=== PATIENT | male | born 1975 | race Hispanic/Latino ===

== ENCOUNTER 2024-01-12 17:06 | Emergency (ER) | payer BC ==
[2024-01-12 17:59] LABS: Specific Gravity 1.007 (1.005-1.030); Urine Bilirubin NEGATIVE (Negative); Urine Blood Negative (Negative); Urine Clarity Clear (Clear); Urine Color Light-Yellow (Yellow); Urine Glucose NEGATIVE (Negative); Urine Ketones NEGATIVE (Negative); Urine Microscopic Reflex YN NO UMIC; Urine Nitrite NEGATIVE (Negative); Urine Protein NEGATIVE (Negative); Urine Urobilinogen Normal (Normal)
[2024-01-12] MEDS ORDERED: MORPHINE 4 MG/ML SYR ONE (17:59)
[2024-01-12] MEDS ORDERED: ONDANSETRON 4 MG/2 ML VIAL ONE (17:59)
[2024-01-12 18:17] LABS: Absolute Basophils 0.1 K/uL (0-0.5); Absolute Lymphocytes (CBC) 1.8 K/uL (0.7-4.9); Absolute Monocytes 0.8 K/uL (0.1-1.3); Absolute Neutrophil 4.8 K/uL (1.8-8.0); Eosinophils % 0.2 % (0-4.4); Hematocrit 39.6 % (39.6-49.0); Hemoglobin 13.9 g/dL (13.6-17.9); Lymphocytes % 24.3 % (15.3-44.8); MCH 34.1 pg (27.0-35.0); MCHC 35.1 g/dL (32.0-36.0); MCV 97.1 fL (80-100); MPV 7.6 fL (7.6-11.3); Monocytes % 10.9 % (3.3-12.3); Neutrophils % 63.6 % (41.7-73.7); Nucleated Red Blood Cells % 0.1 % (0-0); Platelets 265 thou/uL (152-406); RBC Red Blood Cell Count 4.08 M/uL (4.33-5.43); Red Cell Distribution Width 12.8 % (12.1-15.2)
[2024-01-12 18:38] LABS: ALT/SGPT 43 U/L (16-61); AST/SGOT 22 U/L (15-37); Alkaline Phosphatase 57 U/L (45-117); Anion Gap 10.7 mEq/L (5.0-15.0); BUN Blood Urea Nitrogen 15 mg/dL (7-18); Bicarbonate 26 mEq/L (21-32); Bilirubin Total 0.5 mg/dL (0.2-1.0); Glomerular Filtration Rate 76 ml/min (=/>90); Glucose Level 95 mg/dL (74-106); Lipase 39 U/L (13-75); Magnesium 2.3 mg/dL (1.6-2.4); Potassium 3.7 mEq/L (3.5-5.1); Sodium Level 137 mEq/L (136-145)
[2024-01-12 18:39] LABS: Troponin High Sensitivity < 3.0 pg/mL (<58.9)
--- NOTE | 2024-01-12 19:15 | RAD REPORT ---
EXAMINATION: CT ABDOMEN AND PELVIS WITH CONTRAST CLINICAL INDICATION: Abdominal pain TECHNIQUE: CT abdomen and pelvis was performed, after the administration of 100 cc Isovue-300.. Sagit gracie and coronal reconstructions were obtained. One or more of the following dose reduction techniques were used: Automated exposure control, adjustment of the mA and kV according to patient si ze, and iterative reconstruction. Unless otherwise specified, incidental findings do not require dedicated imaging follow-up. [id number]. Oral contrast was not given which limits evaluation of bowel and appendix. COMPARISON: none FINDINGS: Liver, spleen, pancreas, adrenals and kidneys appear unremarkable Diverticula stem from the colon. Mild to moderate stranding adjacent to the ascending. No free air. N o abscess Ventral hernia repair : IMPRESSION: Mild to moderate descending colon diverticulitis
--- NOTE | 2024-01-12 19:16 | RAD REPORT ---
EXAM: CT brain without contrast HISTORY: Headache COMPARISON: None TECHNIQUE: Multiple contiguous axial images were obtained and a CT of the brain without contrast.. Sagittal and coronal reconstruction performed. Automated exposure control, adjustment of the mA and/or kV according to patient size, and/or iterative reconstruction. Unless otherwise specified, incidental f indings do not require dedicated imaging follow-u FINDINGS: An intracranial bleed is not seen Ventricles are normal caliber No extra-axial fluid collection noted Vague small low-density area left occipital lobe. Small low-density area periventricular white matter probably ischemic changes secondary to small vess el disease. No fluid within the visualized sinuses or mastoids noted. IMPRESSION: Vague small low-density area left occipital lobe. It is uncertain if this represents volume averaging of normal structures or a small infarction. This should be correlated clinically. MRI of the brain is recommended.
--- NOTE | 2024-01-12 19:56 | EDPHYS ---
Physician Documentation [facility] Name: Tim Sullivan Jr Age: 48 yrs Sex: Male : 1975 Arrival Date: 01/12/2024 Time: 17:06 Bed 6 Private MD: Parish Vigil HPI: 01/11 17:35 This 48 yrs old Male presents to ER via Ambulatory with complaints of cp Abdominal Pain, Dizziness. 17:35 The patient presents with abdominal pain left flank and left lateral abdomen. Onset: cp The symptoms/episode began/occurred 4 day(s) ago. Associated signs and symptoms: Pertinent positives: fever, dizziness, Pertinent negatives: chest pain, constipation, diarrhea, dysuria, testicular pain, vomiting. The symptoms are described as waxing/waning. Historical: - Allergies: 17:19 No Known Allergies; kc6 - PMHx: 17:19 Arthritis; Gastroesophageal reflux disease; kc6 - PSHx: 17:19 Appendectomy; hernia repair; kc6 - Immunization history:: Adult Immunizations up to date. - Infectious Disease History:: Denies. - Social history:: Smoking status: Patient denies any tobacco usage or history of. ROS: 17:45 Constitutional: Positive for chills, fever, cp 17:45 Eyes: Negative for injury, pain, redness, and discharge, cp 17:45 ENT: Negative for drainage from ear(s), ear pain, sore throat, difficulty swallowing, difficulty handling secretions, 17:45 Cardiovascular: Negative for chest pain, palpitations, 17:45 Respiratory: Negative for cough, shortness of breath, wheezing, 17:45 Abdomen/GI: Positive for abdominal pain, nausea, Negative for diarrhea, constipation, black/tarry stool, rectal bleeding, 17:45 Back: Positive for flank pain, on the left, 17:45 Neuro: Positive for dizziness, Negative for altered mental status, 17:45 All other systems are negative, Exam: 17:50 Constitutional: The patient appears in no acute distress, alert, awake, cp non-diaphoretic, non-toxic, well developed, well nourished, uncomfortable, 17:50 Head/Face: Normocephalic, atraumatic. cp 17:50 Eyes: Periorbital structures: appear normal, Conjunctiva: normal, no exudate, no injection, Sclera: no appreciated abnormality, Lids and lashes: appear normal, bilaterally, 17:50 ENT: External ear(s): are unremarkable, Nose: is normal, Mouth: is normal, Posterior pharynx: Airway: no evidence of obstruction, patent, 17:50 Chest/axilla: Inspection: normal, 17:50 Cardiovascular: Rate: tachycardic, Rhythm: regular, 17:50 Respiratory: the patient does not display signs of respiratory distress, Respirations: normal, no use of accessory muscles, no retractions, labored breathing, is not present, Breath sounds: are clear throughout, no decreased breath sounds, no stridor, no wheezing, 17:50 Abdomen/GI: Inspection: abdomen appears normal, Bowel sounds: active, all quadrants, Palpation: soft, in all quadrants, moderate abdominal tenderness, in the anterior aspect of left lateral abdomen and posterior aspect of left lateral abdomen, rebound tenderness, is not appreciated, involuntary guarding, is not appreciated, 17:50 Neuro: Orientation: to person, place \T\ time. Mentation: is normal, Motor: is normal, Gait: is steady, at a normal pace, without difficulty, 18:52 ECG was reviewed by the Attending Physician. Vital Signs: 17:15 BP 143 / 93; Pulse 102; Resp 19 S; Temp 99.4(O); Pulse Ox 99% on R/A; Weight 90.72 kg kc6 (R); Height 5 ft. 10 in. (R); Pain 8/10; 18:16 BP 135 / 91; Pulse 93; Resp 18; Pulse Ox 97% on R/A; tl4 20:40 BP 143 / 92; Pulse 86; Resp 19; Temp 98.7; Pulse Ox 99% on R/A; MAP 106 mmHg; Pain 5/10;tm6 21:20 BP 131 / 88; Pulse 88; Resp 19; Temp 98.7; Pulse Ox 99% on R/A; MAP 88 mmHg; Pain 0/10; tm6 17:15 Body Mass Index 28.70 (90.72 kg, 177.8 cm) kc6 17:15 Pain Scale: Adult kc6 20:40 Pain Scale: Adult tm6 21:20 Pain Scale: Adult tm6 MDM: 17:19 Medical Screening Exam initiated cp 18:00 Differential diagnosis: bowel obstruction, diverticulitis, gastritis, non-specific abd cp pain, pancreatitis, Pyelonephritis, Testicular Torsion, Ureterolithiasis, urinary tract infection. 19:55 Data reviewed: vital signs, nurses notes, lab test result(s), EKG, radiologic studies, cp CT scan, and as a result, I will discharge patient. 19:56 I considered the following discharge prescriptions or medication management in the emergency department Medications were administered in the Emergency Department. See MAR. 19:56 Counseling: I had a detailed discussion with the patient and/or guardian regarding the cp historical points, exam findings, and any diagnostic results supporting the discharge/admit diagnosis, lab results, radiology results, to return to the emergency department if symptoms worsen or persist or if there are any questions or concerns that arise at home. Response to treatment: the patient's symptoms have markedly improved after treatment, and as a result, I will discharge patient. 01/11 17:31 Order name: CBC with Diff; Complete Time: 19:34 01/11 19:34 Interpretation: Normal except: RBC 4.08. 01/11 17:31 Order name: CMP; Complete Time: 19:34 cp 01/11 19:35 Interpretation: Normal except: GFR 76; GLOB 4.0; A/G 1.0. 01/11 17:31 Order name: Lipase; Complete Time: 19:34 cp 01/11 17:31 Order name: Urinalysis w/ reflexes; Complete Time: 19:34 cp 01/11 17:31 Order name: Troponin High Sensitivity; Complete Time: 19:34 01/11 17:31 Order name: Magnesium; Complete Time: 19:34 01/11 17:49 Order name: CT Abd/Pelvis - IV Contrast Only; Complete Time: 19:34 cp 01/11 19:35 Interpretation: Report reviewed. 01/11 18:37 Order name: CT Head Brain wo Cont; Complete Time: 19:34 01/11 17:31 Order name: IV Saline Lock; Complete Time: 18:18 01/11 17:31 Order name: Labs collected and sent; Complete Time: 18:18 01/11 17:31 Order name: EKG - Nurse/Tech; Complete Time: 18:57 cp EC:52 Rate is 92 beats/min. Rhythm is regular. TN interval is normal. QRS interval is normal. cp T waves are Inverted in leads III, aVR. Interpreted by me. Reviewed by me. Administered Medications: 18:17 Drug: morphine IVP or IV 4 mg IVP once over 4 mins Route: IVP; Infused Over: 4 mins; tl4 Site: right antecubital; 18:32 Follow up: Response: No adverse reaction; Pain is decreased ko1 18:44 Follow up: Response: RASS: Alert and Calm (0) ko1 18:17 Drug: Ondansetron IVP 4 mg IVP once; over 2 minutes Route: IVP; Infused Over: 2 mins; tl4 Site: right antecubital; 18:32 Follow up: Response: No adverse reaction ko1 20:32 Drug: metroNIDAZOLE IVPB 500 mg 100 ml IVPB once over 30 mins Volume: 100 ml; Route: tm6 IVPB; Infused Over: 30 mins; Site: right antecubital; 21:23 Follow up: Response: No adverse reaction; IV Status: Completed infusion; IV Intake: tm6 100ml 20:32 Drug: Ciprofloxacin PO 500 mg PO once Route: PO; tm6 21:23 Follow up: Response: No adverse reaction tm6 20:32 Drug: Ketorolac IVP 15 mg IVP once Route: IVP; Site: right antecubital; tm6 21:23 Follow up: Response: No adverse reaction tm6 Disposition Summary: 01/12/24 19:56 Discharge Ordered Notes: Location: Home cp Problem: new cp Symptoms: have improved cp Condition: Stable cp Diagnosis - Diverticulitis of intestine, part unspecified, without perforation or abscess cp without bleeding - Dizziness and giddiness cp - Headache cp Followup: cp - With: Kamari Cerna MD - When: 1 week - Reason: Recheck today's complaints Discharge Instructions: - Discharge Summary Sheet cp - Diverticulitis cp - Dizziness cp - General Headache Without Cause cp Forms: - Medication Reconciliation Form cp - Antibiotic Education cp - Prescription Opioid Use cp - Patient Portal Instructions cp - Leadership Thank You Letter cp Prescriptions: - Cipro 500 mg Oral Tablet - take 1 tablet ORAL route every 12 hours for 10 days; 20 tablet; Refills: 0, cp Product Selection Permitted - Ibuprofen 800 mg Oral Tablet - take 1 tablet ORAL route every 8 hours As needed take with food; 30 tablet; cp Refills: 0, Product Selection Permitted - Metronidazole 500 mg Oral Tablet - take 1 tablet ORAL route every 8 hours; 30 tablet; Refills: 0, Product cp Selection Permitted Signatures: Dispatcher [employer] EDMS Parish Jimenez PA PA cp Campbell, Kaitlyn RN RN kc6 Kathe Pablo RN RN tm6 Timothy Rodriguez RN RN tl4 Yael Vasquez RN ko1 Corrections: (The following items were deleted from the chart) 17:32 17:32 CBC+H.LAB.BRZ ordered. EDMS EDMS 17:32 17:32 COMPREHENSIVE METABOLIC PANEL+C.LAB.BRZ ordered. EDMS EDMS 17:32 17:32 LIPASE+C.LAB.BRZ ordered. EDMS EDMS 17:32 17:32 Urinalysis+U.LAB.BRZ ordered. EDMS EDMS 17:32 17:32 Troponin High Sensitivity+C.LAB.BRZ ordered. EDMS EDMS 17:32 17:32 MAGNESIUM+C.LAB.BRZ ordered. EDMS EDMS
--- NOTE | 2024-01-12 19:56 | ER ---
Nurse's Notes [facility] Name: Tim Sullivan Jr Age: 48 yrs Sex: Male : 1975 Arrival Date: 01/12/2024 Time: 17:06 Bed 6 Private MD: Diagnosis: Diverticulitis of intestine, part unspecified, without perforation or abscess without bleeding;Dizziness and giddiness;Headache Presentation: 01/11 17:15 Chief complaint: Patient states: LLQ pain x5 days that radiates to the epigastrium and kc6 back. pt also reports headache, confusion, and dizziness. states this AM pt had an episode of profuse sweating. Coronavirus screen: At this time, the client does not indicate any symptoms associated with coronavirus-19. Ebola Screen: No symptoms or risks identified at this time. Initial Sepsis Screen: Does the patient meet any 2 criteria? HR > 90 bpm. Does the patient have a suspected source of infection? No. Patient's initial sepsis screen is negative. Risk Assessment: Do you want to hurt yourself or someone else? Patient reports no desire to harm self or others. Onset of symptoms was January 08, 2024. 17:15 Method Of Arrival: Ambulatory [facility] 17:15 Acuity: DEMETRIA 3 kc6 Historical: - Allergies: 17:19 No Known Allergies; kc6 - PMHx: 17:19 Arthritis; Gastroesophageal reflux disease; kc6 - PSHx: 17:19 Appendectomy; hernia repair; kc6 - Immunization history:: Adult Immunizations up to date. - Infectious Disease History:: Denies. - Social history:: Smoking status: Patient denies any tobacco usage or history of. Screenin:56 [facility] ED Fall Risk Assessment (Adult) History of falling in the last 3 months, tl4 including since admission No falls in past 3 months (0 pts) Confusion or Disorientation No (0 pts) Intoxicated or Sedated No (0 pts) Impaired Gait No (0 pts) Mobility Assist Device Used No (0 pt) Altered Elimination No (0 pt) Score/Fall Risk Level 0 - 2 = Low Risk Oriented to surroundings, Maintained a safe environment, Educated pt \T\ family on fall prevention, incl call for assistance when getting out of bed, Assessed \T\ reinforced patient's understanding of fall precautions. Abuse screen: Denies threats or abuse. Denies injuries from another. Nutritional screening: No deficits noted. Tuberculosis screening: No symptoms or risk factors identified. Assessment: 17:54 General: Appears uncomfortable, Behavior is calm, cooperative. Pain: Complains of pain tl4 in back and abdomen. Neuro: Level of Consciousness is awake, alert, obeys commands, Oriented to person, place, time, situation, Moves all extremities. Full function Gait is steady, Speech is normal, Facial symmetry appears normal. Cardiovascular: Capillary refill < 3 seconds Patient's skin is warm and dry. Respiratory: Airway is patent Respiratory effort is even, unlabored, Respiratory pattern is regular, symmetrical, Breath sounds are clear bilaterally. GI: Bowel sounds present X 4 quads. Abd is soft and non tender Reports upper abdominal pain, intolerance of fluids, intolerance of food, nausea. : No signs and/or symptoms were reported regarding the genitourinary system. EENT: No signs and/or symptoms were reported regarding the EENT system. Derm: No signs and/or symptoms reported regarding the dermatologic system. Musculoskeletal: No signs and/or symptoms reported regarding the musculoskeletal system. 20:32 Reassessment: discharge pending completion of IV antibiotics. tm6 20:41 Reassessment: Patient and/or family updated on plan of care and expected duration. Pain tm6 level reassessed. Patient is alert, oriented x 3, equal unlabored respirations, skin warm/dry/pink. 21:22 Reassessment: Patient and/or family updated on plan of care and expected duration. Pain tm6 level reassessed. Patient is alert, oriented x 3, equal unlabored respirations, skin warm/dry/pink. Vital Signs: 17:15 BP 143 / 93; Pulse 102; Resp 19 S; Temp 99.4(O); Pulse Ox 99% on R/A; Weight 90.72 kg kc6 (R); Height 5 ft. 10 in. (R); Pain 8/10; 18:16 BP 135 / 91; Pulse 93; Resp 18; Pulse Ox 97% on R/A; tl4 20:40 BP 143 / 92; Pulse 86; Resp 19; Temp 98.7; Pulse Ox 99% on R/A; MAP 106 mmHg; Pain 5/10;tm6 21:20 BP 131 / 88; Pulse 88; Resp 19; Temp 98.7; Pulse Ox 99% on R/A; MAP 88 mmHg; Pain 0/10; tm6 17:15 Body Mass Index 28.70 (90.72 kg, 177.8 cm) kc6 17:15 Pain Scale: Adult kc6 20:40 Pain Scale: Adult tm6 21:20 Pain Scale: Adult tm6 ED Course: 17:09 Patient arrived in ED. mr 17:18 Parish Jimenez PA is PHCP. cp 17:18 Parish Jimenez MD is Attending Physician. cp 17:18 Triage completed. kc6 17:19 Arm band placed on. kc6 17:54 Urinalysis w/ reflexes Sent. tl4 17:56 Patient has correct armband on for positive identification. Placed in gown. Bed in low tl4 position. Call light in reach. Side rails up X 1. Adult w/ patient. Provided Education on: ed process, call musa. Client placed on continuous cardiac and pulse oximetry monitoring. NIBP monitoring applied. Door closed. Noise minimized. Lights dimmed. Moved to private room. Warm blanket given. 17:57 No provider procedures requiring assistance completed. tl4 18:16 Initial lab(s) drawn, by va, sent to lab. Urine collected: clean catch specimen. tl4 Inserted saline lock: 22 gauge in right antecubital area, using aseptic technique. Blood collected. Flushed with 10 mL NS. 18:18 CMP Sent. tl4 18:18 Lipase Sent. tl4 18:18 Troponin High Sensitivity Sent. tl4 18:18 Magnesium Sent. tl4 18:58 CT Abd/Pelvis - IV Contrast Only In Process Unspecified. EDMS 18:58 CT Head Brain wo Cont In Process Unspecified. EDMS 19:54 Kamari Cerna MD is Referral Physician. cp 21:03 ESCOBAR DONALD, RN is Primary Nurse. dd2 21:22 IV discontinued, intact, bleeding controlled, No redness/swelling at site. Pressure tm6 dressing applied. Administered Medications: 18:17 Drug: morphine IVP or IV 4 mg IVP once over 4 mins Route: IVP; Infused Over: 4 mins; tl4 Site: right antecubital; 18:32 Follow up: Response: No adverse reaction; Pain is decreased ko1 18:44 Follow up: Response: RASS: Alert and Calm (0) ko1 18:17 Drug: Ondansetron IVP 4 mg IVP once; over 2 minutes Route: IVP; Infused Over: 2 mins; tl4 Site: right antecubital; 18:32 Follow up: Response: No adverse reaction ko1 20:32 Drug: metroNIDAZOLE IVPB 500 mg 100 ml IVPB once over 30 mins Volume: 100 ml; Route: tm6 IVPB; Infused Over: 30 mins; Site: right antecubital; 21:23 Follow up: Response: No adverse reaction; IV Status: Completed infusion; IV Intake: tm6 100ml 20:32 Drug: Ciprofloxacin PO 500 mg PO once Route: PO; tm6 21:23 Follow up: Response: No adverse reaction tm6 20:32 Drug: Ketorolac IVP 15 mg IVP once Route: IVP; Site: right antecubital; tm6 21:23 Follow up: Response: No adverse reaction tm6 Medication: 17:56 VIS not applicable for this client. tl4 Intake: 21:23 IV: 100ml; Total: 100ml. tm6 Outcome: 19:56 Discharge ordered by MD. cp 21:22 Discharged to home ambulatory, with family, tm6 21:22 Condition: stable 21:22 Discharge instructions given to patient, family, Instructed on discharge instructions, follow up and referral plans. medication usage, Demonstrated understanding of instructions, follow-up care, medications, Prescriptions given X 3, 21:23 Patient left the ED. tm6 Signatures: Dispatcher [employer] EDMS Magdi Chen, Reg Reg mr Barbara Parish, RON PA Renetta Hanson RN RN kc6 Yael Vasquez RN RN ko1 Kathe Pablo RN RN tm6 Timothy Rodriguez RN RN tl4 ESCOBAR DONALD RN RN dd2 Corrections: (The following items were deleted from the chart) 21:22 20:40 BP 143 / 92; Pulse 19bpm; Resp 19bpm; Pulse Ox 99% RA; MAP 106 mmHg; Temp 98.7F; tm6 Pain 5/10, Adult; tm6
[2024-01-12] MEDS ORDERED: KETOROLAC 30 MG/ML INJ ONE (20:15)
[2024-01-12] MEDS ORDERED: METRONIDAZOLE 500mg IVPB 500 MG/100 ML BAG IV ONE (20:15)
[2024-01-12] MEDS ORDERED: CIPROFLOXACIN HCL 500 MG TAB ONE (20:15)
[2024-01-13 10:00] VITALS: TEMP 98.7; O2SAT 99
[2024-01-13 10:02] VITALS: BP 131/88
--- NOTE | 2024-01-14 15:06 | EKG ---
Test Date: 2024-01-12 Test Time: 18:47:57 Spring Maker: LIZETTE MEASUREMENT RESULTS: Intervals: Rate: 92 CT: 122 QRSD: 92 QT: 346 QTc: 427 [place]: P: 27 CT: 122 QRS: 4 T: -1 INTERPRETIVE STATEMENTS: Normal sinus rhythm Cannot rule out Anterior infarct, age undetermined Abnormal ECG No previous ECG available for comparison Electronically Signed On 01-14-24 15:05:35 CDT by Sanjay Dumont
== END 2024-01-12 21:23 | disposition home or self-care (01) ==
LOC: ER 17:06
DX: K57.32 Diverticulitis of large intestine without perforation or abscess without bleeding (principal); R51.9 Headache, unspecified; R42 Dizziness and giddiness
CPT/HCPCS: 96365; 93005; 85025; 36415; 83735; 81003; 84484; 83690; 80053; 70450; 74177; 96375; 99284; Q9967; J2405